=== PATIENT | female | born 2000 | race Caucasian/White ===

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

== ENCOUNTER 2021-01-23 19:41 | Emergency (ER) | payer BC, OTHER ==
[~2021-01-23] VITALS: Ht 162.6 cm; Wt 59.1 kg
[~2021-01-23 19:41] MED LIST: ZOFRAN ODT4 MG PO
[2021-01-23 20:51] LABS: COLLECTION METHOD CLEAN CATCH
[2021-01-23 20:59] LABS: MUCOUS Present /lpf; PH 5 (5-8); URINE APPEARANCE Clear; URINE BACTERIA None Seen /hpf; URINE BILIRUBIN Negative (NEGATIVE); URINE BLOOD 1+ (NEGATIVE); URINE COLOR Yellow; URINE GLUCOSE Negative (NEGATIVE); URINE KETONE Negative (NEGATIVE); URINE LEUKOCYTE ESTERASE Negative (NEGATIVE); URINE NITRATE Negative (NEGATIVE); URINE PROTEIN(semi-quant) 1+ (NEGATIVE); URINE RBC 0-2 /hpf; URINE UROBILINOGEN Negative (NEGATIVE); URINE WBC 0-2 /hpf
[2021-01-23 22:13] VITALS: BP 106/75; PULSE 70; TEMP 98.1
== END 2021-01-23 22:14 | disposition home or self-care (01) ==
LOC: COL.ER 19:41
PROVIDERS: Student in an Organized Health Care Education/Training Program
DX: B34.9 Viral infection, unspecified (principal); Z86.16 Personal history of COVID-19